=== PATIENT | male | born 1970 | race Hispanic/Latino ===

== ENCOUNTER 2021-12-06 02:49 | Inpatient (IN) | payer OTHER ==
[~2021-12-06] VITALS: Ht 182.9 cm; Wt 89.4 kg
[2021-12-06] MEDS ORDERED: NICARDIPINE 25MG INJ IV ONE (03:08)
[2021-12-06 03:17] LABS: BASOPHILS % (AUTO) 0.5 % (0.0-5.0); EOSINOPHILS % (AUTO) 1.5 % (0.0-8.0); HEMATOCRIT 37.4 % (42-54); LYMPHOCYTES % (AUTO) 8.1 % (21.0-51.0); MEAN CORPUSCULAR HEMOGLOBIN 27.7 pg (27.0-33.0); MEAN CORPUSCULAR VOLUME 81.5 fL (79-99); MONOCYTES % (AUTO) 3.4 % (3.0-13.0); NEUTROPHILS % (AUTO) 86.2 % (40.0-77.0); PLATELET COUNT (AUTO) 249 K/uL (130-400); RED BLOOD CELL COUNT(AUTO) 4.59 MIL/uL (4.50-6.20); RED CELL DISTRIBUTION WIDTH 12.6 % (11.0-15.5); WHITE BLOOD COUNT (AUTO) 9.9 K/uL (4.8-10.8)
[2021-12-06] MEDS ORDERED: NICARDIPINE 25MG INJ 25 MG in 0.9% NACL 250ML 240 ML IV SCH (03:30)
[2021-12-06 03:32] LABS: ALBUMIN 2.7 g/dL (3.5-5.0); BILIRUBIN,TOTAL 0.3 mg/dL (0.2-1.0); CREATININE 1.7 mg/dL (0.5-1.5); POTASSIUM 3.7 mmol/L (3.5-5.1); TOTAL PROTEIN, SERUM 6.8 g/dL (6.0-8.3)
[2021-12-06 03:58] LABS: APPEARANCE,URINE Clear (CLEAR); BILIRUBIN,URINE Negative (NEGATIVE); COLOR,URINE Yellow (YELLOW); GLUCOSE, URINE (UA) >=1000 mg/dL (NEGATIVE); KETONES,URINE Trace mg/dL (NEGATIVE); LEUKOCYTE ESTERASE ,URINE Negative (NEGATIVE); NITRATE,URINE Negative (NEGATIVE); OCCULT BLOOD,URINE Small (NEGATIVE); PH,URINE 6.5 (5.0-8.0); PROTEIN,URINE >=1000 mg/dL (NEGATIVE); UROBILINOGEN,URINE 0.2 mg/dL (0.2-1.0)
[2021-12-06] MEDS ORDERED: INSULIN HUMULIN R 100 UNIT/ML 3ML ONE (03:58)
[2021-12-06] MEDS ORDERED: INSULIN HUMULIN R 100 UNIT/ML 3ML SQ ONE (04:00)
[2021-12-06] MEDS ORDERED: 0.9%NACL 1000ML 1,000 ML IV ONE (04:00)
[2021-12-06 04:08] LABS: AMPHET/METH SCREEN,URINE NEGATIVE (NEGATIVE); BARBITURATE SCREEN, URINE NEGATIVE (NEGATIVE); BENZODIAZEPINES SCREEN,URINE NEGATIVE (NEGATIVE); CANNABINOID SCREEN,URINE NEGATIVE (NEGATIVE); COCAINE SCREEN,URINE NEGATIVE (NEGATIVE); OPIATE SCREEN,URINE NEGATIVE (NEGATIVE); PHENCYCLIDINE SCREEN,URINE NEGATIVE (NEGATIVE)
[2021-12-06 04:21] LABS: BACTERIA,URINE None Seen /HPF (None Seen); SQUAMOUS EPITHELIAL CELL,UR Rare /HPF (0-2); WBC,URINE 0-1 /HPF (0-1); YEAST,URINE BUDDING None Seen /HPF (None Seen)
[2021-12-06 04:42] LABS: INR 0.91 (0.85-1.15)
[2021-12-06 04:44] LABS: PARTIAL THROMBOPLASTIN TIME 25.7 SEC (26.3-35.5)
[2021-12-06] MEDS ORDERED: ONDANSETRON 4MG INJ IV PRN (05:00)
[2021-12-06 05:32] LABS: HEMOGLOBIN A1C 12.7 % (4.0-6.0)
[2021-12-06 05:39] LABS: THYROID STIMULATING HORMONE 3.4 uIU/mL (0.36-3.74)
[2021-12-06] MEDS ORDERED: GADOTERATE MEGLUMINE 10 MMOL/20 ML VIAL IV ONE (07:56)
[2021-12-06 08:20] LABS: CREATININE 1.6 mg/dL (0.5-1.5); POTASSIUM 3.7 mmol/L (3.5-5.1)
[2021-12-06] MEDS ORDERED: PHARMACY COMMUNICATION MISC SCH (08:30)
[2021-12-06] MEDS: FAMOTIDINE 20MG VIAL IV SCH ×2 (08:49→20:57)
[2021-12-06] MEDS: INSULIN GLARGINE 100 UNITS/ML 10 ML VIAL SQ SCH (08:59)
[2021-12-06] MEDS ORDERED: LEVETIRACETAM 1,000 MG in 0.9%NACL 100ML 100 ML IV SCH (09:00)
[2021-12-06] MEDS ORDERED: METOPROLOL TARTRATE 25 MG TAB PO SCH (09:30)
[2021-12-06] MEDS ORDERED: RENAL DOSE IV PRN (09:30)
[2021-12-06] MEDS ORDERED: FUROSEMIDE 20MG VIAL IV SCH (09:30)
[2021-12-06] MEDS ORDERED: INSULIN HUMULIN R 100 UNIT/ML 3ML SQ SCH (11:30)
[2021-12-06] MEDS ORDERED: ASPIRIN 325MG TAB PO ONE (13:00)
[2021-12-06] MEDS ORDERED: DEXTROSE 50%-WATER 50 ML DISP.SYRIN IV PRN (13:30)
[2021-12-06] MEDS ORDERED: GLUCAGON 1MG KIT 1 MG ML IM PRN (13:30)
[2021-12-06] MEDS: INSULIN HUMULIN R 100 UNIT/ML 3ML SQ SCH (17:44)
[2021-12-06] MEDS ORDERED: ACETAMINOPHEN 325 MG TAB ONE (18:26)
[2021-12-06] MEDS ORDERED: ACETAMINOPHEN 325 MG/10.15ML UDCUP PO ONE (19:00)
[2021-12-06] MEDS ORDERED: ACETAMINOPHEN 325 MG TAB PO PRN (19:00)
[2021-12-06] MEDS: ATORVASTATIN 40 MG TABLET PO SCH (20:57)
[2021-12-06] MEDS: LEVETIRACETAM 500 MG in 0.9%NACL 100ML 100 ML IV SCH (20:58)
[2021-12-06] MEDS: METOPROLOL TARTRATE 25 MG TAB PO SCH (21:00)
[2021-12-07] MEDS: INSULIN HUMULIN R 100 UNIT/ML 3ML SQ SCH ×9 (00:18→21:00)
[2021-12-07 07:15] LABS: BASOPHILS % (AUTO) 0.7 % (0.0-5.0); EOSINOPHILS % (AUTO) 5.9 % (0.0-8.0); HEMATOCRIT 32.4 % (42-54); LYMPHOCYTES % (AUTO) 24.8 % (21.0-51.0); MEAN CORPUSCULAR HEMOGLOBIN 28.5 pg (27.0-33.0); MEAN CORPUSCULAR VOLUME 83.9 fL (79-99); MONOCYTES % (AUTO) 7.3 % (3.0-13.0); PLATELET COUNT (AUTO) 250 K/uL (130-400); RED BLOOD CELL COUNT(AUTO) 3.86 MIL/uL (4.50-6.20); WHITE BLOOD COUNT (AUTO) 5.8 K/uL (4.8-10.8)
[2021-12-07 07:29] LABS: ALBUMIN 2.1 g/dL (3.5-5.0); BILIRUBIN,TOTAL 0.2 mg/dL (0.2-1.0); CREATININE 1.3 mg/dL (0.5-1.5); TOTAL PROTEIN, SERUM 5.6 g/dL (6.0-8.3)
[2021-12-07] MEDS ORDERED: POTASSIUM CHLORIDE 20MEQ/100ML 100 ML IV PRN (08:30)
[2021-12-07] MEDS ORDERED: POTASSIUM CHLORIDE 10% ELIXIR 20 MEQ/15 ML UDCUP PO PRN (08:30)
[2021-12-07] MEDS ORDERED: LIDOCAINE HCL-MPF 1% 2ML VIAL IV PRN (08:30)
[2021-12-07] MEDS: LEVETIRACETAM 500 MG in 0.9%NACL 100ML 100 ML IV SCH ×2 (08:50→20:30)
[2021-12-07] MEDS: METOPROLOL TARTRATE 25 MG TAB PO SCH ×2 (08:50→20:26)
[2021-12-07] MEDS: FAMOTIDINE 20MG VIAL IV SCH ×2 (08:50→20:26)
[2021-12-07] MEDS: INSULIN GLARGINE 100 UNITS/ML 10 ML VIAL SQ SCH (08:50)
[2021-12-07] MEDS: ASPIRIN 81 MG EC TAB PO SCH (08:50)
[2021-12-07] MEDS: KCL 20 MEQ ERTAB PO PRN ×2 (08:53→20:26)
[2021-12-07] MEDS ORDERED: LOSARTAN 25 MG TABLET PO SCH (10:00)
[2021-12-07] MEDS: AMLODIPINE 5 MG TAB PO SCH (10:17)
[2021-12-07 16:29] LABS: CREATININE 1.7 mg/dL (0.5-1.5); POTASSIUM 3.4 mmol/L (3.5-5.1)
[2021-12-07 16:34] LABS: ALBUMIN 2.2 g/dL (3.5-5.0); BILIRUBIN,TOTAL 0.2 mg/dL (0.2-1.0); TOTAL PROTEIN, SERUM 5.8 g/dL (6.0-8.3)
[2021-12-07 17:41] VITALS: BP 164/106
[2021-12-07 17:42] VITALS: BP 153/104
[2021-12-07] MEDS ORDERED: HYDRALAZINE 20MG/ML VIAL IV PRN (18:00)
[2021-12-07] MEDS ORDERED: PHARMACY COMMUNICATION MISC SCH (18:30)
[2021-12-07 20:01] VITALS: BP 145/100
[2021-12-07] MEDS: ATORVASTATIN 40 MG TABLET PO SCH (20:26)
[2021-12-07 23:35] VITALS: BP 127/90
[2021-12-08] VITALS (9 sets, daily range): BP systolic 125–178; BP diastolic 61–98
[2021-12-08] MEDS: INSULIN HUMULIN R 100 UNIT/ML 3ML SQ SCH ×7 (06:09→20:29)
[2021-12-08 06:19] LABS: BASOPHILS % (AUTO) 0.8 % (0.0-5.0); EOSINOPHILS % (AUTO) 5.1 % (0.0-8.0); LYMPHOCYTES % (AUTO) 20.4 % (21.0-51.0); MEAN CORPUSCULAR HEMOGLOBIN 27.5 pg (27.0-33.0); MEAN CORPUSCULAR VOLUME 83.3 fL (79-99); MONOCYTES % (AUTO) 5.9 % (3.0-13.0); NEUTROPHILS % (AUTO) 67.5 % (40.0-77.0); PLATELET COUNT (AUTO) 232 K/uL (130-400); RED BLOOD CELL COUNT(AUTO) 3.96 MIL/uL (4.50-6.20); RED CELL DISTRIBUTION WIDTH 12.9 % (11.0-15.5); WHITE BLOOD COUNT (AUTO) 5.9 K/uL (4.8-10.8)
[2021-12-08 06:32] LABS: CREATININE 1.5 mg/dL (0.5-1.5); POTASSIUM 3.8 mmol/L (3.5-5.1)
[2021-12-08] MEDS: AMLODIPINE 5 MG TAB PO SCH (08:27)
[2021-12-08] MEDS: ASPIRIN 81 MG EC TAB PO SCH (08:27)
[2021-12-08] MEDS: METOPROLOL TARTRATE 25 MG TAB PO SCH ×2 (08:28→20:17)
[2021-12-08] MEDS: FAMOTIDINE 20MG VIAL IV SCH ×2 (08:28→20:17)
[2021-12-08] MEDS: CLOPIDOGREL 75MG TAB PO SCH (08:28)
[2021-12-08] MEDS: INSULIN GLARGINE 100 UNITS/ML 10 ML VIAL SQ SCH (08:32)
[2021-12-08] MEDS: LEVETIRACETAM 500 MG in 0.9%NACL 100ML 100 ML IV SCH ×2 (08:57→21:19)
[2021-12-08] MEDS ORDERED: LOSARTAN 25 MG TABLET PO SCH (09:00)
[2021-12-08] MEDS: ATORVASTATIN 40 MG TABLET PO SCH (20:17)
[2021-12-09] VITALS: BP 126/75
[2021-12-09 04:30] VITALS: BP 148/100
[2021-12-09 07:10] VITALS: BP 148/87
[2021-12-09] MEDS: INSULIN HUMULIN R 100 UNIT/ML 3ML SQ SCH ×5 (07:28→16:29)
[2021-12-09] MEDS: INSULIN GLARGINE 100 UNITS/ML 10 ML VIAL SQ SCH (07:51)
[2021-12-09] MEDS: FAMOTIDINE 20MG VIAL IV SCH (07:52)
[2021-12-09] MEDS: METOPROLOL TARTRATE 25 MG TAB PO SCH (07:52)
[2021-12-09] MEDS: LEVETIRACETAM 500 MG in 0.9%NACL 100ML 100 ML IV SCH (07:52)
[2021-12-09] MEDS: ASPIRIN 81 MG EC TAB PO SCH (07:52)
[2021-12-09] MEDS: AMLODIPINE 5 MG TAB PO SCH (07:53)
[2021-12-09] MEDS: CLOPIDOGREL 75MG TAB PO SCH (07:53)
[2021-12-09] MEDS ORDERED: LOSARTAN 25 MG TABLET PO SCH (09:00)
[2021-12-09 11:30] VITALS: BP 136/90
[2021-12-09] MEDS ORDERED: PANT40TA55 PO (14:02)
[2021-12-09] MEDS ORDERED: GLIP5TAB11 PO (14:02)
[2021-12-09] MEDS ORDERED: ATOR40TA69 PO (14:02)
[2021-12-09] MEDS ORDERED: METF-446 PO (14:02)
[2021-12-09] MEDS ORDERED: LOSA50TA64 PO (14:02)
[2021-12-09] MEDS ORDERED: METO25 PO (14:02)
[2021-12-09] MEDS ORDERED: AEC81 PO (14:02)
[2021-12-09] MEDS ORDERED: PIOG30TA10 PO (14:02)
[2021-12-09] MEDS ORDERED: AMLO-257 PO (14:02)
[2021-12-09] MEDS ORDERED: CLOP75TA14 PO (14:02)
[2021-12-09 15:20] VITALS: BP 153/97
[2021-12-09] MEDS ORDERED: LEVE-43 PO (15:46)
[2021-12-09] MEDS ORDERED: INSULIN HUMULIN R 100 UNIT/ML 3ML SQ SCH (17:00)
== END 2021-12-09 18:00 | disposition home or self-care (01) | DRG 64 ==
LOC: EDH 02:49 → EDHIP 02:50 → 2BH 12-07 00:54 → 4AH 12-07 17:38 → 2AH 12-08 12:40
PROVIDERS: ADMIT Internal Medicine; ATTEND Internal Medicine
DX: I63.9 Cerebral infarction, unspecified (principal); U07.1 COVID-19; J12.82 Pneumonia due to coronavirus disease 2019; I16.1 Hypertensive emergency; I67.4 Hypertensive encephalopathy; N17.9 Acute kidney failure, unspecified; E87.1 Hypo-osmolality and hyponatremia; E11.65 Type 2 diabetes mellitus with hyperglycemia; I12.9 Hypertensive chronic kidney disease with stage 1 through stage 4 chronic kidney disease, or unspecified chronic kidney disease; N18.9 Chronic kidney disease, unspecified; E87.6 Hypokalemia; E66.9 Obesity, unspecified; E11.22 Type 2 diabetes mellitus with diabetic chronic kidney disease; E78.5 Hyperlipidemia, unspecified; G47.33 Obstructive sleep apnea (adult) (pediatric); G51.0 Bell's palsy; Z68.26 Body mass index [BMI] 26.0-26.9, adult; Z74.01 Bed confinement status; Z79.4 Long term (current) use of insulin; Z87.891 Personal history of nicotine dependence; Z91.19 Patient's noncompliance with other medical treatment and regimen; Z86.73 Personal history of transient ischemic attack (TIA), and cerebral infarction without residual deficits; Z83.3 Family history of diabetes mellitus
CPT/HCPCS: 36415; 70450; 70544; 70547; 70551; 71045; 80048; 80053; 80061; 80305; 81001; 82570; 82948; 83036; 83835; 84443; 84484; 85025; 85610; 85730; 87635; 92522; 92610; 93005; 93306; 99291; G0378; J1815; J1940; J1953; J3480; J3490; J7050

== ENCOUNTER → 2025-08-06 | Outpatient (CLI) | payer OTHER, MEDICARE ==
[~2025-08-06] MED LIST: AMLO5TAB4 PO; FERR-72 PO; FOLI0.8T22 PO; KETO-108 OD; ROSU10TA98 PO; SODI650T PO; TRAM50TA4 PO
[2025-08-06] MEDS: REGADENOSON 0.4 MG/5 ML PF SYG IVP ONE (12:36)
== END | disposition home or self-care (01) ==
LOC: RAH 09:54
PROVIDERS: ATTEND Internal Medicine
DX: I25.10 Atherosclerotic heart disease of native coronary artery without angina pectoris (principal)
CPT/HCPCS: 78452; 93017; J2785; A9500 ×2